=== PATIENT | male | born 1960 | race Caucasian/White ===

== ENCOUNTER 2024-08-26 16:05 | Emergency (ER) | payer OTHER, SELFPAY ==
[2024-08-26 16:07] VITALS: BP 152/89; PULSE 96; RESP 16; TEMP 36.5; O2SAT 98; BMI 25.5
--- NOTE | 2024-08-26 16:42 | CTR_ITS ---
PROCEDURE INFORMATION: Exam: CT Neck With Contrast Exam date and time: 08/26/2024 7:05 PM Age: 64 years old Clinical indication: Dysphagia / difficulty swallowing and other: Cough; Additional info: Swallowing difficulty swallowing/cough TECHNIQUE: Imaging protocol: Computed tomography of the neck with contrast. Radiation optimization: All CT scans at this facility use at least one of these dose optimization techniques: automated exposure control; mA and/or kV adjustment per patient size (includes targeted exams where dose is matched to clinical indication); or iterative reconstruction. Contrast material: OMNI 350; Contrast volume: 100 ml; Contrast route: INTRAVENOUS (IV); COMPARISON: CR (CHEST, ) 08/26/2024 4:48 PM RADIATION DOSE METRICS: Total DLP (mGy-cm): 326.82 FINDINGS: Paranasal sinuses: Mild dependent mucosal thickening in the maxillary sinuses. Salivary glands: Normal. Glands are normal in size. Pharynx: Mild hyperenhancement of the nasopharyngeal mucosa and oropharyngeal mucosa suggestive of pharyngitis. No significant tonsillar hypertrophy. No abscess formation. Prevertebral and retropharyngeal spaces: Unremarkable. Larynx: Unremarkable. Epiglottis is normal. Thyroid: Normal. No enlarged or calcified nodules. Trachea: Visualized trachea is unremarkable. Lungs: Unremarkable as visualized. Lymph nodes: Unremarkable. No lymphadenopathy. Bones/joints: Mild disc space narrowing and endplate irregularity and moderate spurring at C4-C5, C5-C6 and C6-C7. Mild moderate canal and from stenosis at C5-C6 mild foraminal stenosis at a few other cervical levels. Soft tissues: Unremarkable. No significant soft tissue swelling. CT/CT neck w con* [id number] IMPRESSION: 1. Mucosal hyperenhancement of the nasopharynx and oropharynx consistent with pharyngitis. 2. No significant tonsillitis or abscess formation. 3. Moderate degenerative cervical spondylosis.
--- NOTE | 2024-08-26 16:42 | XRR_ITS ---
PROCEDURE INFORMATION: Exam: XR Chest Exam date and time: 08/26/2024 4:48 PM Age: 64 years old Clinical indication: Cough and dyspnea; Additional info: Dyspnea/cough TECHNIQUE: Imaging protocol: Radiologic exam of the chest. Views: 1 view. COMPARISON: No relevant prior studies available. FINDINGS: Lungs: Minor left basilar streak atelectasis. No focal consolidation. Pleural spaces: Unremarkable. No pleural effusion. No pneumothorax. Heart/Mediastinum: Unremarkable. No cardiomegaly. Bones/joints: Remote healed fracture deformity of the posterior right 5th and 6th ribs. XR/XR chest 1V portable [id number] IMPRESSION: Minor left basilar streak atelectasis. Otherwise significant acute plain radiographic cardiopulmonary abnormality.
[2024-08-26 18:12] LABS: Basophils # 0.1 10^3/uL (0.0-0.1); Basophils % 0.9 %; Eosinophils # 0.4 10^3/uL (0.0-0.8); Eosinophils % 3.4 %; Hematocrit 42.3 % (37-53); Lymphocytes # 1.9 10^3/uL (0.8-4.8); Lymphocytes % 18.3 %; Mean Corpuscular HGB Conc 33.6 g/dL (30-55); Mean Corpuscular Volume 86.3 fl (82-101); Mean Platelet Volume 9.1 fL (7.4-10.4); Monocytes # 0.8 10^3/uL (0.2-0.9); Monocytes % 7.8 %; Neutrophils # 7.21 10^3/uL (1.8-7.7); Neutrophils % 68.6 %; Nucleated Red Blood Cells % 0 %; Platelet Count 366 10^3/cmm (157-399); Red Cell Distribution Width 12.6 % (12.1-15.1); White Blood Count 10.53 10^3/uL (3.29-11.43)
--- NOTE | 2024-08-26 18:34 | ED_ITS ---
Documented by User: ZIYAD Soria 08/26/24 20:12 HPI - URI/Sore Throat 2 General: Chief Complaint: Upper Respiratory Infection Stated Complaint: swollen neck Time Seen by Provider: 08/26/24 18:23 History of Present Illness: 64-year-old male patient comes in today for complaints of cough with some congestion for about 10 days. Patient went to urgent care but was referred to the ER for concerns of some swelling of the neck. Patient appears nontoxic. Patient does have a hoarse voice. Urgent care was concerned about patient having some swelling to the neck area. Related Data Previous Rx's Medication Instructions Recorded doxycycline hyclate 100 mg capsule 100 mg PO BID 7 days #14 caps 08/26/24 prednisone 20 mg tablet 20 mg PO DAILY #7 tabs 08/26/24 promethazine-DM 6.25 mg-15 mg/5 mL 5 ml PO Q6H PRN cough #118 mL 08/26/24 oral syrup Allergies Allergy/AdvReac Type Severity Reaction Status Date / Time No Known Allergies Allergy Unverified 08/26/24 15:44 Review of Systems 2 General: Reports: 10 or more systems reviewed and unremarkable except in HPI and below PFSH ED 2 PFSH: Social History Smoking and tobacco/nicotine status: never used tobacco/nicotine Physical Exam 2 Const: COMMON NORMALS: alert HENMT: COMMON NORMALS: normocephalic HEAD & SCALP: normocephalic MOUTH: Normal oral and palatal mucosa present THROAT: posterior oropharynx normal Neck/C-Spine: COMMON NORMALS: full ROM CERVICAL SPINE: Yes cervical ROM normal Lymph: OTHER: left cervical lymphadenitis Resp: COMMON NORMALS: normal respiratory effort Cardio: COMMON NORMALS: regular rate RATE: regular rate GI: COMMON NORMALS: non-tender Back/Pelvis: COMMON NORMALS: thoracic and lumbar spine normal to inspection Extremity: COMMON NORMALS: normal to inspection Neuro: SENSORIUM/ORIENTATION: Yes alert Skin: COMMON NORMALS: turgor normal GENERAL SKIN EXAM: turgor normal Course 2 Vital Signs: Vital signs: Vital Signs Temperature 97.6 F 08/26/24 19:55 Pulse Rate 82 08/26/24 19:55 Respiratory Rate 17 08/26/24 19:55 Blood Pressure 161/98 08/26/24 19:55 Pulse Oximetry 100 08/26/24 19:55 Oxygen Delivery Me thod Room Air 08/26/24 19:16 MDM - URI/Sore Throat Medical Decision Making Patient was referred to the ER from urgent care for concerns of swelling in the neck. On exam patient has some mild lymphadenopathy to left side of neck. No subcu emphysema is palpated. Lungs are clear to auscultation. Patient's voice is hoarse. Differential diagnosis includes laryngitis, upper respiratory infection, epiglottitis, lymphadenitis. Chest x-ray noted some left basilar atelectasis. CBC was unremarkable. CMP noted a creatinine 1.3, sodium 129 and a glucose of 215. CT of the neck was compatible with pharyngitis/laryngitis. No abscess or other significant abnormalities were noted. Patiently treated for laryngitis with a atelectasis of the lung. Patient was placed on antibiotics steroid and a cough medicine. Patient stated understanding of care plan need for follow-up or return to the ER. Lab Data 08/26/24 17:52 08/26/24 17:52 Radiology Impressions Chest X-Ray 08/26/24 16:42 IMPRESSION: Minor left basilar streak atelectasis. Otherwise significant acute plain radiographic cardiopulmonary abnormality. Neck CT 08/26/24 16:42 IMPRESSION: 1. Mucosal hyperenhancement of the nasopharynx and oropharynx consistent with pharyngitis. 2. No significant tonsillitis or abscess formation. 3. Moderate degenerative cervical spondylosis. Laboratory Results WBC 10.53 10^3/uL (3.29-11.43) 08/26/24 17:52 RBC 4.90 10^6/uL (3.85-5.65) 08/26/24 17:52 Hgb 14.20 g/dL (11.27-16.99) 08/26/24 17:52 Hct 42.3 % (37-53) 08/26/24 17:52 MCV 86.3 fl (82-101) 08/26/24 17:52 MCH 29.0 pg (27-33) 08/26/24 17:52 MCHC 33.6 g/dL (30-55) 08/26/24 17:52 RDW 12.6 % (12.1-15.1) 08/26/24 17:52 Plt Count 366 10^3/cmm (157-399) 08/26/24 17:52 MPV 9.1 fL (7.4-10.4) 08/26/24 17:52 Neut % (Auto) 68.6 % 08/26/24 17:52 Lymph % (Auto) 18.3 % 08/26/24 17:52 [place] % (Auto) 7.8 % 08/26/24 17:52 Eos % (Auto) 3.4 % 08/26/24 17:52 Baso % (Auto) 0.9 % 08/26/24 17:52 Neut # (Auto) 7.21 10^3/uL (1.8-7.7) 08/26/24 17:52 Lymph # (Auto) 1.9 10^3/uL (0.8-4.8) 08/26/24 17:52 [place] # (Auto) 0.8 10^3/uL (0.2-0.9) 08/26/24 17:52 Eos # (Auto) 0.4 10^3/uL (0.0-0.8) 08/26/24 17:52 Baso # (Auto) 0.1 10^3/uL (0.0-0.1) 08/26/24 17:52 Nucleated RBC % (auto) 0 % 08/26/24 17:52 Nucleated RBCs # 0.0 /100WBC 08/26/24 17:52 Sodium 129 mmol/L (136-145) L 08/26/24 17:52 Potassium 4.4 mmol/L (3.5-5.1) 08/26/24 17:52 Chloride 93 mmol/L (98-107) L 08/26/24 17:52 Carbon Dioxide 21 mmol/L (22-29) L 08/26/24 17:52 Anion Gap 19.4 (5-19) H 08/26/24 17:52 BUN 23 mg/dL (8-23) 08/26/24 17:52 Creatinine 1.3 mg/dL (0.7-1.2) H 08/26/24 17:52 GFR Calculation 55.9 mL/min (90-130) L 08/26/24 17:52 Glucose 215 mg/dL (65-115) H 08/26/24 17:52 Calculated Osmolality 278 mOsm/kg (285-295) L 08/26/24 17:52 Calcium 9.7 mg/dL (8.5-10.5) 08/26/24 17:52 Total Bilirubin 0.3 mg/dL (0.15-1.2) 08/26/24 17:52 AST 19 U/L (0-40) 08/26/24 17:52 ALT 27 U/L (0-41) 08/26/24 17:52 Alkaline Phosphatase 121 U/L (40-130) 08/26/24 17:52 Total Protein 8.1 g/dL (6.6-8.7) 08/26/24 17:52 Albumin 4.1 g/dL (3.5-5.2) 08/26/24 17:52 Globulin 4.0 g/dL (1.3-4.6) 08/26/24 17:52 All radiology interpretation(s) finalized by discharge Discharge Plan Discharge Patient Disposition: Home Clinical Impression: Laryngitis, Atelectasis of left lung Condition: Stable Prescriptions: New doxycycline hyclate 100 mg capsule 100 mg PO BID 7 Days Qty: 14 0RF promethazine-DM 6.25-15 mg/5 mL syrup 5 ml PO Q6H PRN (Reason: cough) Qty: 118 0RF prednisone 20 mg tablet 20 mg PO DAILY Qty: 7 0RF Discharge Orders: Discharge ED (Routine); Ordered 08/26/24 Ordered By: Marko Chapman Referrals: Daniel Bobby, RESIDENT MANAGER [Primary Care Provider] - Discharge Diet: Usual diet Discharge Activity: Increase activity as tolerated Patient Instructions: Acute Cough (ED) Activity Restrictions/Additional Instructions: Home and rest. Drink plenty of water and fluids. Use medications as prescribed. Follow-up with primary care for further instructions. Return to ED for new concerns. 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 [employer] Documented by User: Dillon Moulton DO 08/27/24 07:10 HPI - URI/Sore Throat 2 General: Chief Complaint: Upper Respiratory Infection Stated Complaint: swollen neck Time Seen by Provider: 08/26/24 18:23 Related Data Previous Rx's Medication Instructions Recorded doxycycline hyclate 100 mg capsule 100 mg PO BID 7 days #14 caps 08/26/24 prednisone 20 mg tablet 20 mg PO DAILY #7 tabs 08/26/24 promethazine-DM 6.25 mg-15 mg/5 mL 5 ml PO Q6H PRN cough #118 mL 08/26/24 oral syrup Allergies Allergy/AdvReac Type Severity Reaction Status Date / Time No Known Allergies Allergy Unverified 08/26/24 15:44 PFSH ED 2 PFSH: Social History Smoking and tobacco/nicotine status: never used tobacco/nicotine Course 2 Vital Signs: Vital signs: Vital Signs Temperature 97.6 F 08/26/24 19:55 Pulse Rate 82 08/26/24 19:55 Respiratory Rate 17 08/26/24 19:55 Blood Pressure 161/98 08/26/24 19:55 Pulse Oximetry 100 08/26/24 19:55 Oxygen Delivery Me thod Room Air 08/26/24 19:16 MDM - URI/Sore Throat Medical Decision Making Patient was referred to the ER from urgent care for concerns of swelling in the neck. On exam patient has some mild lymphadenopathy to left side of neck. No subcu emphysema is palpated. Lungs are clear to auscultation. Patient's voice is hoarse. Differential diagnosis includes laryngitis, upper respiratory infection, epiglottitis, lymphadenitis. Chest x-ray noted some left basilar atelectasis. CBC was unremarkable. CMP noted a creatinine 1.3, sodium 129 and a glucose of 215. CT of the neck was compatible with pharyngitis/laryngitis. No abscess or other significant abnormalities were noted. Patiently treated for laryngitis with a atelectasis of the lung. Patient was placed on antibiotics steroid and a cough medicine. Patient stated understanding of care plan need for follow-up or return to the ER. This patient was originally seen by ZIYAD Orantes.? I agree with his history, evaluation, and treatment. Lab Data 08/26/24 17:52 08/26/24 17:52 Radiology Impressions Chest X-Ray 08/26/24 16:42 IMPRESSION: Minor left basilar streak atelectasis. Otherwise significant acute plain radiographic cardiopulmonary abnormality. Neck CT 08/26/24 16:42 IMPRESSION: 1. Mucosal hyperenhancement of the nasopharynx and oropharynx consistent with pharyngitis. 2. No significant tonsillitis or abscess formation. 3. Moderate degenerative cervical spondylosis. Laboratory Results WBC 10.53 10^3/uL (3.29-11.43) 08/26/24 17:52 RBC 4.90 10^6/uL (3.85-5.65) 08/26/24 17:52 Hgb 14.20 g/dL (11.27-16.99) 08/26/24 17:52 Hct 42.3 % (37-53) 08/26/24 17:52 MCV 86.3 fl (82-101) 08/26/24 17:52 MCH 29.0 pg (27-33) 08/26/24 17:52 MCHC 33.6 g/dL (30-55) 08/26/24 17:52 RDW 12.6 % (12.1-15.1) 08/26/24 17:52 Plt Count 366 10^3/cmm (157-399) 08/26/24 17:52 MPV 9.1 fL (7.4-10.4) 08/26/24 17:52 Neut % (Auto) 68.6 % 08/26/24 17:52 Lymph % (Auto) 18.3 % 08/26/24 17:52 [place] % (Auto) 7.8 % 08/26/24 17:52 Eos % (Auto) 3.4 % 08/26/24 17:52 Baso % (Auto) 0.9 % 08/26/24 17:52 Neut # (Auto) 7.21 10^3/uL (1.8-7.7) 08/26/24 17:52 Lymph # (Auto) 1.9 10^3/uL (0.8-4.8) 08/26/24 17:52 [place] # (Auto) 0.8 10^3/uL (0.2-0.9) 08/26/24 17:52 Eos # (Auto) 0.4 10^3/uL (0.0-0.8) 08/26/24 17:52 Baso # (Auto) 0.1 10^3/uL (0.0-0.1) 08/26/24 17:52 Nucleated RBC % (auto) 0 % 08/26/24 17:52 Nucleated RBCs # 0.0 /100WBC 08/26/24 17:52 Sodium 129 mmol/L (136-145) L 08/26/24 17:52 Potassium 4.4 mmol/L (3.5-5.1) 08/26/24 17:52 Chloride 93 mmol/L (98-107) L 08/26/24 17:52 Carbon Dioxide 21 mmol/L (22-29) L 08/26/24 17:52 Anion Gap 19.4 (5-19) H 08/26/24 17:52 BUN 23 mg/dL (8-23) 08/26/24 17:52 Creatinine 1.3 mg/dL (0.7-1.2) H 08/26/24 17:52 GFR Calculation 55.9 mL/min (90-130) L 08/26/24 17:52 Glucose 215 mg/dL (65-115) H 08/26/24 17:52 Calculated Osmolality 278 mOsm/kg (285-295) L 08/26/24 17:52 Calcium 9.7 mg/dL (8.5-10.5) 08/26/24 17:52 Total Bilirubin 0.3 mg/dL (0.15-1.2) 08/26/24 17:52 AST 19 U/L (0-40) 08/26/24 17:52 ALT 27 U/L (0-41) 08/26/24 17:52 Alkaline Phosphatase 121 U/L (40-130) 08/26/24 17:52 Total Protein 8.1 g/dL (6.6-8.7) 08/26/24 17:52 Albumin 4.1 g/dL (3.5-5.2) 08/26/24 17:52 Globulin 4.0 g/dL (1.3-4.6) 08/26/24 17:52 Discharge Plan Discharge Patient Disposition: Home Clinical Impression: Laryngitis, Atelectasis of left lung Condition: Stable Prescriptions: New doxycycline hyclate 100 mg capsule 100 mg PO BID 7 Days Qty: 14 0RF promethazine-DM 6.25-15 mg/5 mL syrup 5 ml PO Q6H PRN (Reason: cough) Qty: 118 0RF prednisone 20 mg tablet 20 mg PO DAILY Qty: 7 0RF Discharge Orders: Discharge ED (Routine); Ordered 08/26/24 Ordered By: Marko Chapman Referrals: Daniel Bobby, RESIDENT MANAGER [Primary Care Provider] - Discharge Diet: Usual diet Discharge Activity: Increase activity as tolerated Patient Instructions: Acute Cough (ED) Activity Restrictions/Additional Instructions: Home and rest. Drink plenty of water and fluids. Use medications as prescribed. Follow-up with primary care for further instructions. Return to ED for new concerns. 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 Terese Toledo
[2024-08-26 18:36] LABS: Alanine Aminotransferase 27 U/L (0-41); Albumin Level 4.1 g/dL (3.5-5.2); Alkaline Phosphatase 121 U/L (40-130); Anion Gap 19.4 (5-19); Aspartate Amino Transferase 19 U/L (0-40); Blood Urea Nitrogen 23 mg/dL (8-23); Calcium 9.7 mg/dL (8.5-10.5); Carbon Dioxide 21 mmol/L (22-29); Chloride 93 mmol/L (98-107); Glomerular Filtration Rate 55.9 mL/min (90-130); Glucose 215 mg/dL (65-115); Osmolality Calculated 278 mOsm/kg (285-295); Potassium 4.4 mmol/L (3.5-5.1); Sodium 129 mmol/L (136-145); Total Bilirubin 0.3 mg/dL (0.15-1.2); Total Protein 8.1 g/dL (6.6-8.7)
[2024-08-26 18:42] LABS: Creatinine Clr Calc Pharmacy 57.6953
[2024-08-26 18:45] VITALS: BP 161/99; O2SAT 100
[2024-08-26] MEDS: sodium chloride 0.9% 1,000 ML 999 ML IV (18:57)
[2024-08-26] MEDS: dexamethasone 10 mg/mL INJ IVP (18:57)
[2024-08-26] MEDS: iohexol 350 mg/mL 500 mL Btl (per mL) IV (19:11)
[2024-08-26 19:16] VITALS: PULSE 85; RESP 18; O2SAT 100
[2024-08-26] MEDS: ipratropium-albuterol 3 mL Neb INHALATION (19:16)
[2024-08-26] MEDS: doxycycline 100 mg Tablet PO (19:50)
[2024-08-26] MEDS: promethazine-cod syrup 6.25-10mg/5 mL UDC PO (19:50)
[2024-08-26] MEDS: benzonatate 100 mg Capsule 200 MG PO (19:50)
[2024-08-26 19:55] VITALS: BP 161/98; PULSE 82; RESP 17; TEMP 36.4; O2SAT 100
== END 2024-08-26 20:10 | disposition home or self-care (01) ==
PROVIDERS: Family Medicine; Emergency Provider Nurse Practitioner Family; Family Provider Nurse Practitioner Family; PCP Nurse Practitioner Family
DX: J04.0 Acute laryngitis (principal); J98.11 Atelectasis
CPT/HCPCS: 36415; 70491; 71045; 80053; 85025; 94640; 96374; 99285; J1100; J7030